=== PATIENT | female | born 1950 | race Caucasian/White ===

== ENCOUNTER 2017-09-23 11:30 | Inpatient (IN) | payer MEDICARE, MEDICAID ==
[~2017-09-23] VITALS: Ht 167.6 cm; Wt 88.9 kg
[2017-09-23 12:07] LABS: Basophils # (auto) 0.1 uL; Eosinophils # (auto) 0.1 uL; Eosinophils % (auto) 1.2 % (0.0-7.0); Hematocrit 42.9 % (36.0-46.0); Hemoglobin 14.4 g/dL (12.2-16.2); Lymphocytes # (auto) 1.7 uL; Lymphocytes % (auto) 29.5 % (10.0-50.0); Mean Corpuscular Hemoglobin 28.8 pg (28.0-32.0); Mean Corpuscular Hgb Conc. 33.6 g/dL (32.0-36.0); Mean Corpuscular Volume 85.7 fL (80.0-100.0); Monocytes # (auto) 0.8 uL; Neutrophils # (auto) 3.2 uL; Neutrophils % (auto) 54.3 % (37.0-80.0); Nucleated Red Blood Cells % 0.1 %; Platelet Count (auto) 254 10^3/uL (140-450); Red Blood Cells 5.01 10^6/uL (4.0-5.20); Red Cell Distribution Width 13.7 % (11.8-14.3); White Blood Cell 5.8 10^3/uL (4.4-10.8)
[2017-09-23 12:26] LABS: Albumin 3.1 g/dL (3.4-5.0); BUN/Creatinine Ratio 23.8; Bilirubin, Total 0.5 mg/dL (0.2-1.0); Calcium 8.8 mg/dL (8.5-10.1); Potassium 3.3 mmol/L (3.5-5.1); Total Protein 7.8 g/dL (6.4-8.2)
[2017-09-23 15:34] LABS: Urine Bacteria MOD /hpf (None Seen); Urine Blood 1+ /uL (Negative); Urine Hyaline Cast FEW /lpf (0 - 2); Urine Mucus FEW (None Seen); Urine WBC 66 /hpf (0 - 5)
[2017-09-23] MEDS ORDERED: SODIUM CHLORIDE 0.9% 500 ML IVB ONE (15:38)
[2017-09-23] MEDS ORDERED: SODIUM CHLORIDE 0.9% 1,000 ML IV ONE (15:38)
[2017-09-23] MEDS ORDERED: POTASSIUM CHL 10% (20 MEQ/15ML) 15ml ORAL SOLN PO ONE (15:45)
[2017-09-23] MEDS ORDERED: PROMETHAZINE HCL 25 MG/ML 1ML IV PRN (15:45)
[2017-09-23] MEDS ORDERED: cloNIDine HCL 0.1 MG TAB PO ONE (15:45)
[2017-09-23] MEDS ORDERED: POTASSIUM CHL 10 Meq TABLET PO ONE ×4 (17:15)
[2017-09-23] MEDS: metroNIDAZOLE 500MG/100ML 100 ML IV ONE ×2 (17:45→18:53)
[2017-09-23] MEDS ORDERED: cefTRIAXone 1GM/10ml IVPUSH 10 ML IV ONE ×2 (17:45→18:15)
[2017-09-23] MEDS ORDERED: ACETAMINOPHEN 500 MG TAB PO PRN (18:15)
[2017-09-23] MEDS ORDERED: MORPHINE SULF(PF) 0.5MG/ML 10ML VIAL IV PRN (18:15)
[2017-09-23] MEDS ORDERED: NITROGLYCERIN 0.4 MG SL TAB SL PRN (18:15)
[2017-09-23] MEDS ORDERED: HYDROcodone-ACET 5/325MG TAB PO PRN (18:15)
[2017-09-23] MEDS ORDERED: MEPERIDINE HCL (25 MG/ML) 1ML VIAL IV PRN (18:15)
[2017-09-23] MEDS: SODIUM CHLORIDE 0.9% 1,000 ML IV SCH (18:39)
[2017-09-23] MEDS: FAMOTIDINE (10MG/ML) 2ML VL IV SCH (18:53)
[2017-09-23] MEDS: MORPHINE SULF 15mg ER tab PO SCH (21:55)
[2017-09-23] MEDS ORDERED: BACLOFEN 10 MG TAB PO ONE (22:15)
[2017-09-23 22:29] VITALS: BP 161/77
[2017-09-24] VITALS (9 sets, daily range): BP systolic 131–206; BP diastolic 68–92
[2017-09-24] MEDS: ENALAPRILAT 1.25 MG/ML-1ML VIAL IV PRN ×2 (03:57→15:48)
[2017-09-24] MEDS: SODIUM CHLORIDE 0.9% 1,000 ML IV SCH ×2 (04:08→13:37)
[2017-09-24 05:55] LABS: Basophils # (auto) 0.1 uL; Basophils % (auto) 1.2 % (0.0-2.0); Eosinophils # (auto) 0.1 uL; Eosinophils % (auto) 1.9 % (0.0-7.0); Hematocrit 39.7 % (36.0-46.0); Hemoglobin 13.7 g/dL (12.2-16.2); Lymphocytes # (auto) 1.8 uL; Lymphocytes % (auto) 34.8 % (10.0-50.0); Mean Corpuscular Hemoglobin 29.6 pg (28.0-32.0); Mean Corpuscular Hgb Conc. 34.5 g/dL (32.0-36.0); Mean Corpuscular Volume 85.9 fL (80.0-100.0); Monocytes # (auto) 0.8 uL; Monocytes % (auto) 15.9 % (0.0-12.0); Neutrophils # (auto) 2.4 uL; Neutrophils % (auto) 46.2 % (37.0-80.0); Nucleated Red Blood Cells % 0.1 %; Platelet Count (auto) 238 10^3/uL (140-450); Red Blood Cells 4.62 10^6/uL (4.0-5.20); Red Cell Distribution Width 13.6 % (11.8-14.3); White Blood Cell 5.2 10^3/uL (4.4-10.8)
[2017-09-24] MEDS: metroNIDAZOLE 500MG/100ML 100 ML IV SCH ×4 (06:00→17:24)
[2017-09-24 06:13] LABS: Potassium 3.5 mmol/L (3.5-5.1)
[2017-09-24] MEDS: FAMOTIDINE (10MG/ML) 2ML VL IV SCH (06:15)
[2017-09-24 06:20] LABS: Albumin 2.8 g/dL (3.4-5.0); BUN/Creatinine Ratio 16.4; Calcium 8.2 mg/dL (8.5-10.1)
[2017-09-24 06:24] LABS: Bilirubin, Total 0.4 mg/dL (0.2-1.0); Total Protein 7.4 g/dL (6.4-8.2)
[2017-09-24] MEDS: MORPHINE SULF 15mg ER tab PO SCH ×2 (08:49→21:19)
[2017-09-24] MEDS: cefTRIAXone 1GM/10ml IVPUSH 10 ML IV SCH (08:50)
[2017-09-24] MEDS: ENOXAPARIN SOD 40 MG/0.4 ML SYRINGE SC SCH (08:50)
[2017-09-24] MEDS ORDERED: DICL50TA4 PO (09:56)
[2017-09-24] MEDS ORDERED: ATEN-60 PO (09:56)
[2017-09-24] MEDS ORDERED: TEMA30CA PO (09:56)
[2017-09-24] MEDS ORDERED: BACL10TA PO (09:56)
[2017-09-24] MEDS ORDERED: ATEN100T PO (09:56)
[2017-09-24] MEDS ORDERED: PERCOT PO (10:00)
[2017-09-24] MEDS ORDERED: MORP60TA25 PO (10:00)
[2017-09-24] MEDS ORDERED: MORP15TA PO (10:00)
[2017-09-24] MEDS ORDERED: TEMAZEPAM 15 MG CAP PO PRN (13:15)
[2017-09-24] MEDS ORDERED: ATENOLOL 50 MG TAB PO ONE (13:30)
[2017-09-24] MEDS: OXYCODONE W/ ACETAMINOPHEN 5/325MG TABLET PO PRN (16:57)
[2017-09-24] MEDS: BACLOFEN 10 MG TAB PO PRN (18:21)
[2017-09-24] MEDS ORDERED: TEMAZEPAM 15 MG CAP PO ONE (21:00)
[2017-09-24] MEDS ORDERED: ATENOLOL 25 MG TAB PO SCH (22:00)
[2017-09-25] MEDS: OXYCODONE W/ ACETAMINOPHEN 5/325MG TABLET PO PRN ×2 (01:56→11:01)
[2017-09-25 05:25] VITALS: BP 167/89
[2017-09-25] MEDS: metroNIDAZOLE 500MG/100ML 100 ML IV SCH ×4 (06:14→18:00)
[2017-09-25] MEDS: SODIUM CHLORIDE 0.9% 1,000 ML IV SCH (06:14)
[2017-09-25] MEDS: BACLOFEN 10 MG TAB PO PRN ×2 (06:15→18:14)
[2017-09-25] MEDS: cefTRIAXone 1GM/10ml IVPUSH 10 ML IV SCH (08:44)
[2017-09-25 08:51] VITALS: BP 169/83
[2017-09-25] MEDS: MORPHINE SULF 15mg ER tab PO SCH (09:58)
[2017-09-25] MEDS ORDERED: ATENOLOL 50 MG TAB PO SCH (10:00)
[2017-09-25] MEDS: ENOXAPARIN SOD 40 MG/0.4 ML SYRINGE SC SCH (10:01)
[2017-09-25 13:24] VITALS: BP 214/107
[2017-09-25 13:40] VITALS: BP 169/97
[2017-09-25] MEDS: ENALAPRILAT 1.25 MG/ML-1ML VIAL IV PRN (16:51)
[2017-09-25 16:55] VITALS: BP 202/92
[2017-09-25] MEDS: cloNIDine HCL 0.1 MG TAB PO ONE ×2 (18:29→18:33)
== END 2017-09-25 19:00 | disposition left against medical advice (07) | DRG 463 ==
LOC: ER 11:30 → EDBD 11:30 → EDSEX 11:30 → TELE 11:31 → TELE-WESTW 20:55
PROVIDERS: ADMIT Internal Medicine; ATTEND Internal Medicine
DX: N39.0 Urinary tract infection, site not specified (principal); E44.1 Mild protein-calorie malnutrition; I10 Essential (primary) hypertension; K52.9 Noninfective gastroenteritis and colitis, unspecified; Q06.8 Other specified congenital malformations of spinal cord; B96.20 Unspecified Escherichia coli [E. coli] as the cause of diseases classified elsewhere; Z53.21 Procedure and treatment not carried out due to patient leaving prior to being seen by health care provider; G47.00 Insomnia, unspecified; I16.0 Hypertensive urgency; M54.42 Lumbago with sciatica, left side; M54.41 Lumbago with sciatica, right side; E87.6 Hypokalemia; B95.2 Enterococcus as the cause of diseases classified elsewhere; R00.1 Bradycardia, unspecified; R73.9 Hyperglycemia, unspecified; I89.0 Lymphedema, not elsewhere classified; E66.9 Obesity, unspecified; G89.29 Other chronic pain; Z85.828 Personal history of other malignant neoplasm of skin; Z86.14 Personal history of Methicillin resistant Staphylococcus aureus infection; Z68.31 Body mass index [BMI] 31.0-31.9, adult; Z88.6 Allergy status to analgesic agent; Z88.8 Allergy status to other drugs, medicaments and biological substances; Z90.49 Acquired absence of other specified parts of digestive tract
CPT/HCPCS: 36415; 74176; 80053; 81001; 82150; 83690; 83735; 85025; 85652; 86141; 87040; 87045; 87081; 87086; 87088; 87186; 87493; 87899; 93005; 96361; 96374; 96375; J3490

== ENCOUNTER 2021-06-29 12:50 | Emergency (ER) | payer MEDICARE, MEDICAID ==
[~2021-06-29] VITALS: Ht 165.1 cm; Wt 72.6 kg
[~2021-06-29 12:50] MED LIST: ATEN-60 PO; ATEN100T PO; BACL10TA PO; DICL50TA4 PO; MORP15TA PO; PERCOT PO; TEMA30CA PO
[2021-06-29] MEDS ORDERED: ASPirin 81 mg TAB PO ONE (13:00)
[2021-06-29 13:31] VITALS: BP 168/81
== END 2021-06-29 14:17 | disposition home or self-care (01) ==
LOC: EDBD 12:50 → ER 12:50
DX: R07.89 Other chest pain (principal); I10 Essential (primary) hypertension; G89.4 Chronic pain syndrome; Z88.6 Allergy status to analgesic agent
CPT/HCPCS: 71045; 93005

== ENCOUNTER 2021-06-29 15:26 | Inpatient (IN) | payer MEDICARE, MEDICAID ==
[~2021-06-29] VITALS: Ht 152.4 cm; Wt 81.6 kg
[2021-06-29] MEDS ORDERED: ONDANSETRON HCL 4 MG/2 ML VIAL IV ONE (15:45)
[2021-06-29] MEDS ORDERED: HYDROmorphone HCL 2 MG/ML VL IV ONE (15:45)
[2021-06-29] MEDS ORDERED: HYDROmorphone HCL 2 MG/ML VL IM ONE (16:45)
[2021-06-29] MEDS ORDERED: LABETALOL HCL 5 MG/ML 4ML SYRINGE IV ONE (17:45)
[2021-06-29] MEDS ORDERED: LORazepam 2MG/ML-1ML VIAL IV ONE ×2 (17:45→20:30)
[2021-06-29 18:49] LABS: Basophils # (auto) 0 10 ^3/uL (0-0.2); Basophils % (auto) 0.3 % (0.0-2.0); Eosinophils # (auto) 0 10 ^3/uL (0-0.8); Hematocrit 39.2 % (36.0-46.0); Hemoglobin 13.5 g/dL (12.2-16.2); Lymphocytes # (auto) 0.3 10 ^3/uL (0.4-5.4); Lymphocytes % (auto) 1.6 % (10.0-50.0); Mean Corpuscular Hemoglobin 30.2 pg (28.0-32.0); Mean Corpuscular Hgb Conc. 34.3 g/dL (32.0-36.0); Monocytes # (auto) 0.7 10 ^3/uL (0-1.3); Monocytes % (auto) 4.1 % (0.0-12.0); Neutrophils # (auto) 15.9 10 ^3/uL (1.6-8.6); Red Blood Cells 4.46 10^6/uL (4.0-5.20); Red Cell Distribution Width 13.8 % (11.8-14.3); White Blood Cell 16.9 10^3/uL (4.4-10.8)
[2021-06-29 19:01] LABS: INR 1.06 (0.9-1.15); Partial Thromboplastin Time 24.8 sec (23.6-33.0)
[2021-06-29 19:09] LABS: Albumin 3.6 g/dL (3.4-5.0); Calcium 8.7 mg/dL (8.5-10.1); Potassium 3.2 mmol/L (3.5-5.1)
[2021-06-29 19:16] LABS: BUN/Creatinine Ratio 17.7; Bilirubin, Total 1.2 mg/dL (0.2-1.0); Total Protein 7.4 g/dL (6.4-8.2)
[2021-06-29] MEDS ORDERED: ENOXAPARIN SOD 80 MG/0.8ML SYRINGE SC ONE (19:45)
[2021-06-29] MEDS ORDERED: FUROSEMIDE 40 MG/4 ML VIAL IV ONE (19:45)
[2021-06-29] MEDS ORDERED: LABETALOL HCL 5 MG/ML 4ML SYRINGE IV PRN (20:45)
[2021-06-29] MEDS ORDERED: NITROGLYCERIN 0.4 MG SL TAB SL PRN ×2 (20:45)
[2021-06-29] MEDS ORDERED: MORPHINE SULFATE 4 MG/ML SYR/VIAL IV PRN (20:45)
[2021-06-29] MEDS ORDERED: ATORVASTATIN 20 MG TAB PO ONE (20:45)
[2021-06-29] MEDS ORDERED: MORPHINE SULFATE INJECTION 2 MG/ML SYRG IV PRN (20:45)
[2021-06-29] MEDS ORDERED: ALUM & MAG HYDROX-SIMETH LIQ(MAALOX) 30 ML PO ONE (20:45)
[2021-06-29] MEDS ORDERED: CLOPIDOGREL 300 MG TAB PO ONE (20:45)
[2021-06-29] MEDS ORDERED: LORazepam 0.5 MG TAB PO PRN (20:45)
[2021-06-29] MEDS ORDERED: ACETAMINOPHEN 325 MG TAB PO PRN (20:45)
[2021-06-29 20:46] LABS: Urine Bacteria NONE SEEN /hpf (None Seen); Urine Blood 1+ /uL (Negative); Urine Specific Gravity 1.012 (1.001-1.035); Urine WBC <1 /hpf (0 - 5)
[2021-06-29] MEDS: POTASSIUM CHL 20MEQ/100ML 100 ML IV SCH ×2 (21:00→23:00)
[2021-06-29 21:03] LABS: Alcohol, Urine < 3.0 mg/dL (0-10); Amphetamine Screen, Urine NEGATIVE (NEGATIVE); Barbiturate Scree,Urine NEGATIVE (NEGATIVE); Benzodiazephine Screen, Urine NEGATIVE (NEGATIVE); Cannabinoid Screen, Urine NEGATIVE (NEGATIVE); Cocaine Screen, Urine NEGATIVE (NEGATIVE); Opiate Scree,Urine NEGATIVE (NEGATIVE); Phencyclidine Screen, Urine NEGATIVE (NEGATIVE)
[2021-06-29] MEDS ORDERED: METOPROLOL TARTRATE 1MG/1ML-5ML VIAL IV ONE (21:15)
[2021-06-29] MEDS ORDERED: ENOXAPARIN SOD 100 MG/1 ML SYRINGE SC ONE (21:15)
[2021-06-29] MEDS ORDERED: ASPirin 300 MG RECTAL SUPP PR ONE (22:00)
[2021-06-29] MEDS: CARVEDILOL 3.125 MG TAB PO SCH (22:00)
[2021-06-30] MEDS ORDERED: LORazepam 2MG/ML-1ML VIAL IV PRN (00:15)
[2021-06-30 00:16] VITALS: BP 163/84
[2021-06-30 04:41] VITALS: BP 172/90
[2021-06-30] MEDS: METOPROLOL TARTRATE 1MG/1ML-5ML VIAL IV SCH ×3 (06:00→12:00)
[2021-06-30] MEDS ORDERED: POTASSIUM CHL 20MEQ/100ML 200 ML IV ONE (06:28)
[2021-06-30] MEDS: POTASSIUM CHL 20MEQ/100ML 100 ML IV SCH ×2 (06:30→08:53)
[2021-06-30 08:00] VITALS: BP 155/92
[2021-06-30 08:11] LABS: Basophils # (auto) 0.1 10 ^3/uL (0-0.2); Basophils % (auto) 0.5 % (0.0-2.0); Eosinophils # (auto) 0 10 ^3/uL (0-0.8); Hematocrit 39.9 % (36.0-46.0); Hemoglobin 13.8 g/dL (12.2-16.2); Lymphocytes # (auto) 0.8 10 ^3/uL (0.4-5.4); Lymphocytes % (auto) 5.2 % (10.0-50.0); Mean Corpuscular Hemoglobin 30.6 pg (28.0-32.0); Mean Corpuscular Hgb Conc. 34.7 g/dL (32.0-36.0); Monocytes # (auto) 0.7 10 ^3/uL (0-1.3); Monocytes % (auto) 4.7 % (0.0-12.0); Neutrophils # (auto) 13.9 10 ^3/uL (1.6-8.6); Neutrophils % (auto) 89.6 % (37.0-80.0); Nucleated Red Blood Cells % 0.1 %; Red Blood Cells 4.53 10^6/uL (4.0-5.20); White Blood Cell 15.6 10^3/uL (4.4-10.8)
[2021-06-30 08:21] LABS: Albumin 3.4 g/dL (3.4-5.0)
[2021-06-30 08:27] LABS: BUN/Creatinine Ratio 22.1; Bilirubin, Total 0.7 mg/dL (0.2-1.0); Total Protein 7.4 g/dL (6.4-8.2)
[2021-06-30 08:31] VITALS: BP 155/92
[2021-06-30 08:32] LABS: Potassium 2.9 mmol/L (3.5-5.1)
[2021-06-30] MEDS: CARVEDILOL 3.125 MG TAB PO SCH (09:48)
[2021-06-30] MEDS ORDERED: ASPirin 81 mg TAB PO SCH (10:00)
[2021-06-30] MEDS ORDERED: LISINOPRIL 5 MG TAB PO SCH (10:00)
[2021-06-30] MEDS ORDERED: CLOPIDOGREL BISULFATE 75 MG TAB PO SCH (10:00)
[2021-06-30] MEDS ORDERED: FAMOTIDINE 20 MG TAB PO SCH (10:00)
[2021-06-30] MEDS ORDERED: ENOXAPARIN SOD 100 MG/1 ML SYRINGE SC SCH (10:00)
[2021-06-30] MEDS ORDERED: DOCUSATE SOD 100 MG CAP PO SCH (10:00)
[2021-06-30] MEDS ORDERED: ENOXAPARIN SOD 80 MG/0.8ML SYRINGE SC SCH (10:00)
[2021-06-30] MEDS ORDERED: FUROSEMIDE 40 MG/4 ML VIAL IV SCH (10:00)
[2021-06-30] MEDS ORDERED: OXYCODONE W/ ACETAMINOPHEN 5/325MG TABLET PO PRN (10:30)
[2021-06-30 12:52] VITALS: BP 133/73
[2021-06-30] MEDS ORDERED: ATORVASTATIN 20 MG TAB PO SCH (22:00)
== END 2021-06-30 13:00 | disposition left against medical advice (07) | DRG 190 ==
LOC: ER 15:26 → TELE-WESTW 23:48
PROVIDERS: ADMIT Internal Medicine; ATTEND Internal Medicine
DX: I21.4 Non-ST elevation (NSTEMI) myocardial infarction (principal); E11.65 Type 2 diabetes mellitus with hyperglycemia; I11.0 Hypertensive heart disease with heart failure; I50.9 Heart failure, unspecified; D72.829 Elevated white blood cell count, unspecified; E66.9 Obesity, unspecified; E87.6 Hypokalemia; Z20.822 Contact with and (suspected) exposure to COVID-19; G89.4 Chronic pain syndrome; I16.0 Hypertensive urgency; I25.10 Atherosclerotic heart disease of native coronary artery without angina pectoris; Z53.29 Procedure and treatment not carried out because of patient's decision for other reasons; Z68.35 Body mass index [BMI] 35.0-35.9, adult; Z87.440 Personal history of urinary (tract) infections; Z90.49 Acquired absence of other specified parts of digestive tract; Z88.8 Allergy status to other drugs, medicaments and biological substances; Z79.84 Long term (current) use of oral hypoglycemic drugs
CPT/HCPCS: 36415; 36600; 51702; 70450; 71045; 80053; 80061; 80307; 81001; 82805; 83036; 83735; 83880; 84484; 85025; 85610; 85730; 87081; 93005; 93971; 96372; 96374; 96375; 99291; G0378; J3480